=== PATIENT | male | born 1955 | race African-American/Black ===

== ENCOUNTER 2023-02-22 15:37 | Emergency (ER) | payer OTHER ==
--- NOTE | 2023-02-22 16:48 | EDPHYS ---
Physician Documentation [facility] Name: Emilio Cho Age: 67 yrs Sex: Male : 1955 Arrival Date: 02/22/2023 Time: 15:37 Bed IW4 Private MD: ED Physician Zachery Myles HPI: 02/22 16:43 This 67 yrs old Black Male presents to ER via Ambulatory with complaints of Wound rn Infection - RIGHT LEG. 16:43 The patient presents with pain. The complaints affect the right calf. Onset: The rn symptoms/episode began/occurred 1 week(s) ago. Modifying factors: The symptoms are alleviated by nothing. the symptoms are aggravated by nothing. Severity of symptoms: At their worst the symptoms were mild, in the emergency department the symptoms are unchanged. The patient has not experienced similar symptoms in the past. Patient reports dry itchy skin on his legs, was scratching and scratched some skin off a couple weeks ago. Started to get ulcerations on that leg last week, was initially draining a little, has dried up and improved but still causing a little bit of pain. No fever. Does not see a physician. Unknown if diabetic. Does not take medications.. Historical: - Allergies: 16:06 No Known Allergies; iw - Home Meds: 16:06 None [Active]; iw - PMHx: 16:06 None; iw - PSHx: 16:06 None; iw - Immunization history:: Client reports having NOT received the Covid vaccine. - Social history:: Smoking status: Patient reports the use of cigarette tobacco products. - Family history:: not pertinent. - Hospitalizations: : No recent hospitalization is reported. ROS: 16:43 Constitutional: Negative for fever, chills, and weight loss, Cardiovascular: Negative rn for chest pain, palpitations, and edema, Respiratory: Negative for shortness of breath, cough, wheezing, and pleuritic chest pain, Abdomen/GI: Negative for abdominal pain, nausea, vomiting, diarrhea, and constipation, MS/Extremity: Positive for itching and wounds to right calf Exam: 16:43 Constitutional: This is a well developed, well nourished patient who is awake, alert, rn and in no acute distress. Cardiovascular: Regular rate and rhythm. No pulse deficits. MS/ Extremity: Pulses diminished but equal, no cyanosis. Neurovascular intact. Full, normal range of motion. Equal circumference. Brawny edema to lower extremities with dry skin and signs of peripheral vascular disease bilateral ankles. Shallow multiple ulcerations right calf without fluctuance. No streaking or warmth. Dry and not leaking. Vital Signs: 16:04 BP 135 / 88; Pulse 87; Resp 16; Temp 98.2; Pulse Ox 99% on R/A; iw MDM: 15:46 Patient medically screened. rn 16:43 Differential diagnosis: Cellulitis, peripheral vascular disease, dry cracked skin. Data rn reviewed: vital signs, nurses notes, and as a result, I will discharge patient. Counseling: I had a detailed discussion with the patient and/or guardian regarding the historical points, exam findings, and any diagnostic results supporting the discharge/admit diagnosis, the need for outpatient follow up, to return to the emergency department if symptoms worsen or persist or if there are any questions or concerns that arise at home. Special discussion: I discussed with the patient/guardian in detail that at this point there is no indication for admission to the hospital. It is understood, however, that if the symptoms persist or worsen the patient needs to return immediately for re-evaluation. Based on the history and exam findings, there is no indication for further emergent testing or inpatient evaluation. I discussed with the patient/guardian the need to see the primary care provider for further evaluation of the symptoms. ED course: Spoke to patient and family at length, likely has multiple medical problems including neuropathy, peripheral vascular disease with intermittent claudication, hyperlipidemia, hypertension. No indication for emergent admission at this time but strongly urged him to follow-up with PCP. We will put on antibiotics for the ulcerations and skin changes at this time. Return precautions given and understood.. Administered Medications: No medications were administered Disposition Summary: 02/22/23 16:47 Discharge Ordered Notes: Location: Home rn Problem: new rn Symptoms: are unchanged rn Condition: Stable rn Diagnosis - Cellulitis of right lower limb rn - Peripheral vascular disease, unspecified rn - Polyneuropathy, unspecified rn - Essential (primary) hypertension rn Followup: rn - With: Private Physician - When: 2 - 3 days - Reason: Recheck today's complaints, Re-evaluation by your physician Discharge Instructions: - Discharge Summary Sheet rn - Cellulitis, Adult rn - Hypertension, Adult rn - Intermittent Claudication rn - Peripheral Vascular Disease rn - Heart Disease er rn - Peripheral Neuropathy rn Forms: - Medication Reconciliation Form rn - Thank You Letter 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
--- NOTE | 2023-02-22 16:48 | ER ---
Nurse's Notes [facility] Name: Emilio Cho Age: 67 yrs Sex: Male : 1955 Arrival Date: 02/22/2023 Time: 15:37 Bed IW4 Private MD: Diagnosis: Cellulitis of right lower limb;Peripheral vascular disease, unspecified;Polyneuropathy, unspecified;Essential (primary) hypertension Presentation: 02/22 16:04 Chief complaint: Patient states: has had wounds to back of right calf X 2 weeks, it's iw been itchy and he has been scratching it. Coronavirus screen: At this time, the client does not indicate any symptoms associated with coronavirus-19. Ebola Screen: Patient negative for fever greater than or equal to 101.5 degrees Fahrenheit, and additional compatible Ebola Virus Disease symptoms Patient denies exposure to infectious person. Patient denies travel to an Ebola-affected area in the 21 days before illness onset. No symptoms or risks identified at this time. Initial Sepsis Screen: Does the patient meet any 2 criteria? No. Patient's initial sepsis screen is negative. Does the patient have a suspected source of infection? No. Patient's initial sepsis screen is negative. Risk Assessment: Do you want to hurt yourself or someone else? Patient reports no desire to harm self or others. Onset of symptoms was February 05, 2023. 16:04 Method Of Arrival: Ambulatory iw 16:04 Acuity: MICHELLE 3 iw Historical: - Allergies: 16:06 No Known Allergies; iw - Home Meds: 16:06 None [Active]; iw - PMHx: 16:06 None; iw - PSHx: 16:06 None; iw - Immunization history:: Client reports having NOT received the Covid vaccine. - Social history:: Smoking status: Patient reports the use of cigarette tobacco products. - Family history:: not pertinent. - Hospitalizations: : No recent hospitalization is reported. Screenin:54 [facility] ED Fall Risk Assessment (Adult) Score/Fall Risk Level 0 - 2 = Low Risk ll1 Oriented to surroundings, Maintained a safe environment, Educated pt \T\ family on fall prevention, incl call for assistance when getting out of bed, Hourly rounding (assess needs \T\ fall precautionary measures) done. Abuse screen: Denies threats or abuse. Nutritional screening: No deficits noted. Tuberculosis screening: No symptoms or risk factors identified. Assessment: 16:54 General: Appears in no apparent distress. Behavior is calm, cooperative, appropriate ll1 for age. Pain: Denies pain. Derm: Reports rash to back of leg. + itch and redness. Musculoskeletal: Circulation, motion, and sensation intact. Capillary refill < 3 seconds. Vital Signs: 16:04 BP 135 / 88; Pulse 87; Resp 16; Temp 98.2; Pulse Ox 99% on R/A; iw ED Course: 15:42 Patient arrived in ED. im 15:46 Zachery Myles MD is Attending Physician. rn 16:06 Triage completed. iw 16:06 Arm band placed on. iw 16:25 Zeina Warren RN is Primary Nurse. iw 16:54 No provider procedures requiring assistance completed. Patient did not have IV access ll1 during this emergency room visit. 16:57 Patient has correct armband on for positive identification. Call light in reach. Side ll1 rails up X 1. Provided Education on: n/a. Administered Medications: No medications were administered Medication: 16:57 VIS not applicable for this client. ll1 Outcome: 16:47 Discharge ordered by . rn 16:54 Discharged to home ambulatory, ll1 16:54 Condition: stable 16:54 Discharge instructions given to patient, family, Instructed on discharge instructions, follow up and referral plans. medication usage, Demonstrated understanding of instructions, follow-up care, medications, Prescriptions given X 1, 16:57 Patient left the ED. ll1 Signatures: Zeina Warren RN RN Zachery Myles MD MD rn Lewis, Lynsay, RN RN 1 Luci Byrnes
[2023-02-22 17:03] VITALS: BP 135/88; TEMP 98.2; O2SAT 99
== END 2023-02-22 16:57 | disposition home or self-care (01) ==
LOC: ER 15:37
DX: L03.115 Cellulitis of right lower limb (principal); I73.9 Peripheral vascular disease, unspecified; G62.9 Polyneuropathy, unspecified; I10 Essential (primary) hypertension; Z72.0 Tobacco use
CPT/HCPCS: 99283